=== PATIENT | male | born 1995 | race Two or more races ===

== ENCOUNTER 2018-07-09 13:43 | Emergency (ER) | payer OTHER ==
[2018-07-09] MEDS ORDERED: DEXAMETHASONE 10 MG/ML VIAL IVP ONE (14:31)
[2018-07-09] MEDS ORDERED: NS 1,000 ML IV ONE (14:31)
[2018-07-09] MEDS ORDERED: METOCLOPRAMIDE 10 MG/2 ML VIAL IVP ONE (14:31)
--- NOTE | 2018-07-09 14:34 | EDPHY ---
H & P Stated Complaint: multiple; h/a, dizziness, nausea since this am, no trauma Time Seen by Provider: 07/09/18 14:12 HPI/ROS: CHIEF COMPLAINT: Headache HISTORY OF PRESENT ILLNESS: 22-year-old male with migraine headaches presents with a severe headache. He is studying for finals and did not sleep well last night. He took Seroquel prior to bedtime yesterday evening as usual. When he awoke this morning, he felt fatigued. He took Adderall to help with studying. After taking Adderall, he developed a throbbing headache, associated with photophobia and nausea. Prior similar headaches, typical of migraine headaches. REVIEW OF SYSTEMS: complete 10 point ROS reviewed and is negative except for the noted elements in the HPI - Medical/Surgical History Hx Asthma: No Hx Chronic Respiratory Disease: No Hx Diabetes: No Hx Cardiac Disease: No Hx Renal Disease: No Hx Cirrhosis: No Hx Alcoholism: No Hx HIV/AIDS: No Hx Splenectomy or Spleen Trauma: No Other PMH: ADHD. depression - Social History Smoking Status: Never smoked Alcohol Use: Sober Drug Use: None - Physical Exam Exam: General Appearance: Alert, pleasant and talkative Eyes: Pupils equal and round, no conjunctival pallor ENT, Mouth: Mucous membranes moist Neck: Normal inspection Respiratory: Lungs are clear to auscultation Cardiovascular: Regular rate and rhythm Gastrointestinal: Abdomen is soft and nontender Neurological: Alert, oriented x3, cranial nerves II through XII intact, motor 5 /5, sensory intact to light touch Skin: Warm and dry Extremities: Normal inspection Psychiatric: Mood and affect normal Constitutional: Initial Vital Signs Temperature (C) 36.8 C 07/09/18 13:55 Heart Rate 69 07/09/18 13:55 Respiratory Rate 18 07/09/18 13:55 Blood Pressure 125/87 H 07/09/18 13:55 O2 Sat (%) 98 07/09/18 13:55 O2 Delivery Mode Room Air Allergies/Adverse Reactions: No Known Allergies Allergy (Unverified 07/09/18 13:54) Home Medications: Medication Instructions Recorded Adderall 20 mg (*) 07/09/18 PRISTIQ 07/09/18 Seroquel 100 mg (*) 07/09/18 Medical Decision Making ED Course/Re-evaluation: This patient presents with a typical migraine headache. Neurologic exam is normal and I do not suspect an alternative etiology for headache. Reglan, Benadryl and Decadron IV given. 3:30 p.m.-patient feels much better and wants to go home. Headache has almost completely resolved. Follow-up instructions given. Differential Diagnosis: Headache including but not limited to subarachnoid hemorrhage, migraine headache , tension headache and infectious causes such as meningitis, pharyngitis and sinusitis. - Data Points Medications Given: Discontinued Medications Dexamethasone (Decadron Injection) 10 mg IVP EDNOW ONE Stop: 07/09/18 14:32 Last Admin: 07/09/18 14:44 Dose: 10 mg Diphenhydramine HCl (Benadryl Injection) 25 mg IVP EDNOW ONE Stop: 07/09/18 14:32 Last Admin: 07/09/18 14:43 Dose: 25 mg Sodium Chloride (Ns) 1,000 mls @ 0 mls/hr IV ONCE ONE; Wide Open PRN Reason: Protocol Stop: 07/09/18 14:32 Last Admin: 07/09/18 14:44 Dose: 1,000 mls Metoclopramide HCl (Reglan Injection) 10 mg IVP EDNOW ONE Stop: 07/09/18 14:32 Last Admin: 07/09/18 14:43 Dose: 10 mg Departure - Departure Disposition: Home, Routine, Self-Care Clinical Impression: Migraine headache Condition: Good Instructions: Migraine Headache (ED) Additional Instructions: Return for recurrent symptoms or any concerns. Referrals: LUIS Burch,. [Clinic] - As per Instructions
[2018-07-09] MEDS ORDERED: DEXAMETHASONE 4 MG/ML VIAL ONE (14:39)
[2018-07-09 15:48] VITALS: BP 129/75
== END 2018-07-09 15:47 | disposition home or self-care (01) ==
LOC: EDSEX 13:43
DX: G43.909 Migraine, unspecified, not intractable, without status migrainosus (principal); E86.9 Volume depletion, unspecified
CPT/HCPCS: 96374; J1100; J1200; J2765